=== PATIENT | male | born 1970 | race Caucasian/White ===

== ENCOUNTER 2017-06-16 22:18 | Emergency (ER) | payer OTHER ==
[2017-06-16 22:30] VITALS: O2SAT 95
--- NOTE | 2017-06-16 22:47 | EDPHY ---
H & P Stated Complaint: pt at work, passed out due to low bg, bg 42 after passing out HPI/ROS: HPI CHIEF COMPLAINT: Hypoglycemia, syncope HISTORY OF PRESENT ILLNESS: This patient 47-year-old male he is insulin- dependent diabetic he tells me that he takes 60 units of Lantus in the morning 40 units 3 times per day. He states that he skipped dinner this evening. He did take his normal noon insulin dose into the lunch. He states he was walking out of his building where he works and had a syncopal episode. He did not have any preceding symptoms. Specifically did not have chest pain shortness of breath palpitations, headache neck pain numbness or tingling or focal weakness. He states that he woke up with EMS standing over him they started IV given amp of D50 he woke up and felt much better. He then ate a chicken sandwich. He declined EMS transport here. He arrived by private vehicle. He tells me that he feels fine now. He tells me that his hemoglobin A1c has been 10, now 8 , he tells me does not take his blood sugar. He just gives himself insulin. He tells me that he last took his blood sugar yesterday. He tells me that he gave himself 60 units of Lantus this morning 40 units of regular insulin, another 40 units of regular insulin without checking his blood sugar. Most likely cause of syncope today arriving in the emergency room by private vehicle is hypoglycemia from insulin overdose. Past Medical History: Insulin-dependent diabetes, traumatic brain injury as a young child Past Surgical History: Denies recent surgery Social History: Denies daily use of drugs alcohol tobacco products lives in [place], works for the [employer] Family History: Noncontributory ROS REVIEW OF SYSTEMS: A comprehensive 10 point review of systems is otherwise negative aside from elements mentioned in the history of present illness. Exam Constitutional appears well nontoxic, atraumatic exam, GCS 15, alert or x4, triage nursing summary reviewed, vital signs reviewed, awake/alert. Eyes normal conjunctivae and sclera, EOMI, PERRLA. HENT normal inspection, atraumatic, moist mucus membranes, no epistaxis, neck supple/ no meningismus, no raccoon eyes. Respiratory clear to auscultation bilaterally, normal breath sounds, no respiratory distress, no wheezing. Cardiovascular rate normal, regular rhythm, no murmur, no edema, distal pulses normal. Gastrointestinal soft, non-tender, no rebound, no guarding, normal bowel sounds, no distension, no pulsatile mass. Genitourinary no CVA tenderness. Musculoskeletal no midline vertebral tenderness, full range of motion, no calf swelling, no tenderness of extremities, no meningismus, good pulses, neurovascularly intact. Skin pink, warm, & dry, no rash, skin atraumatic. Neurologic awake, alert and oriented x 3, AAOx3, moves all 4 extremities equally, motor intact, sensory intact, CN II-XII intact, normal cerebellar, normal vision, normal speech. Psychiatric normal mood/affect. Heme/Lymph/Immune no lymphadenopathy. Differential Diagnosis: Includes but is not limited to in a particular order, hypoglycemia from insulin overdose, incorrect use of insulin, poorly-controlled diabetes Medical Decision Making: Plan for this patient IV establishment, check basic blood work, monitor for hypoglycemia. If he stays stable will allow him to go home. Re-evaluation: Source: Patient - Personal History Tetanus Vaccine Date: 09/04/10 - Medical/Surgical History Hx Asthma: No Hx Chronic Respiratory Disease: No Hx Diabetes: Yes Hx Cardiac Disease: No Hx Renal Disease: No Hx Cirrhosis: No Hx Alcoholism: No Hx HIV/AIDS: No Hx Splenectomy or Spleen Trauma: No Other PMH: dm2, hypertension, hyperlipidemia, back surg, chi - surg, orif RUE - Social History Smoking Status: Former smoker Constitutional: Initial Vital Signs Temperature (C) 36.5 C 06/16/17 22:25 Heart Rate 88 06/16/17 22:25 Respiratory Rate 16 06/16/17 22:25 Blood Pressure 155/96 H 06/16/17 22:25 O2 Sat (%) 95 06/16/17 22:25 O2 Delivery Mode Room Air Allergies/Adverse Reactions: No Known Allergies Allergy (Verified 06/16/17 22:30) Home Medications: Medication Instructions Recorded SIMVASTATIN [Zocor] 0 mg PO 09/27/11 Humalog 06/16/17 Lantus 100 UNITS/ML (*) 06/16/17 Lisinopril 06/16/17 Medical Decision Making - Data Points Laboratory Results: Laboratory Results 06/16/17 23:30 06/16/17 23:30 Departure - Departure Disposition: Home, Routine, Self-Care Clinical Impression: Hypoglycemia Condition: Good Instructions: Hypoglycemia in a Person with Diabetes (ED) Additional Instructions: 1. Please make sure you are checking your blood sugar. 2. Do not give yourself insulin without checking your blood sugar. 3. Do not skip meals. Referrals: Alex Wilson MD [Primary Care Provider] - As per Instructions
[2017-06-16 23:41] LABS: % IMMATURE GRANULYOCYTES 0.4 % (0.0-1.1); ABSOLUTE IMMATURE GRANULOCYTES 0.03 10^3/uL (0.00-0.10); ADD DIFF? NO; ADD MORPH? NO; ADD SCAN? NO; ATYPICAL LYMPHOCYTE FLAG 0 (0-99); FRAGMENT RBC FLAG 0 (0-99); HEMATOCRIT 39.1 % (40.0-51.0); HEMOGLOBIN 13.9 g/dL (13.7-17.5); LEFT SHIFT FLG 0 (0-99); LIPEMIA HEMOLYSIS FLAG 90 (0-99); MEAN CELL HEMOGLOBIN CONCENTR. 35.5 g/dL (32.4-36.7); MEAN CELL VOLUME 84.4 fL (81.5-99.8); MEAN PLATELET VOLUME 9.3 fL (8.7-11.7); PLATELET CLUMPS FLAG 40 (0-99); PLATELET COUNT 312 10^3/uL (150-400); RED BLOOD CELL COUNT 4.63 10^6/uL (4.40-6.38); RED CELL DISTRIBUTION WIDTH 12.4 % (11.5-15.2)
[2017-06-16 23:51] LABS: ANION GAP 11 mEq/L (8-16); CALCIUM 9.2 mg/dL (8.5-10.4); CARBON DIOXIDE 26 mEq/l (22-31); CHLORIDE 106 mEq/L (97-110); CREATININE 0.6 mg/dL (0.7-1.3); ETHANOL SERUM < 10 mg/dL (0-10); GLOMERULAR FILTRATION RATE > 60; GLUCOSE 182 mg/dL (70-100); POTASSIUM 4.2 mEq/L (3.5-5.2); SODIUM 143 mEq/L (134-144)
[2017-06-17 00:11] VITALS: BP 164/89; PULSE 74; RESP 18; TEMP 97.5
== END 2017-06-17 00:10 | disposition home or self-care (01) ==
DX: E10.649 Type 1 diabetes mellitus with hypoglycemia without coma (principal); I10 Essential (primary) hypertension; Z87.891 Personal history of nicotine dependence
CPT/HCPCS: G0480

== ENCOUNTER → 2017-08-29 | Outpatient (CLI) | payer OTHER | LOC: BMCIMAGING 15:40 | PROVIDERS: ATTEND Internal Medicine | DX: M79.671 Pain in right foot (principal) ==

== ENCOUNTER → 2017-09-22 | Outpatient (CLI) | payer OTHER | LOC: BMCIMAGING 16:25 | PROVIDERS: ATTEND Internal Medicine | DX: K59.00 Constipation, unspecified (principal); R68.83 Chills (without fever) ==

== ENCOUNTER → 2017-11-11 | Outpatient (CLI) | payer OTHER | LOC: BMCIMAGING 10:21 | PROVIDERS: ATTEND Podiatrist Foot & Ankle Surgery | DX: Z47.89 Encounter for other orthopedic aftercare (principal); Z98.890 Other specified postprocedural states ==

== ENCOUNTER → 2018-02-19 | Outpatient (CLI) | payer OTHER ==
[~2018-02-19] MED LIST: IOPAMIDOL (ISOVUE-300) 100 ML BTL ONE
== END ==
LOC: FIMAGING 14:14
PROVIDERS: ATTEND Family Medicine
DX: R10.31 Right lower quadrant pain (principal); N20.0 Calculus of kidney; K65.4 Sclerosing mesenteritis; R16.0 Hepatomegaly, not elsewhere classified
CPT/HCPCS: Q9967